=== PATIENT | male | born 1960 ===

== ENCOUNTER 2016-11-25 05:56 | Emergency (ER) | payer SELFPAY ==
[~2016-11-25] VITALS: Ht 185.4 cm; Wt 66.0 kg
[2016-11-25 05:58] VITALS: BP 126/81; PULSE 124; RESP 18; TEMP 98.2; O2SAT 97
== END 2016-11-25 08:25 | disposition left against medical advice (07) ==
LOC: NED 05:56
DX: R11.10 Vomiting, unspecified (principal); Z53.21 Procedure and treatment not carried out due to patient leaving prior to being seen by health care provider
CPT/HCPCS: 99281